=== PATIENT | male | born 1995 | race Caucasian/White ===

== ENCOUNTER 2019-05-29 11:09 | Emergency (ER) | payer BC ==
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
== END 2019-05-29 11:50 | disposition home or self-care (01) ==
LOC: ER 11:09
DX: S06.0X0A Concussion without loss of consciousness, initial encounter (principal); S80.812A Abrasion, left lower leg, initial encounter; V43.52XA Car driver injured in collision with other type car in traffic accident, initial encounter; Y93.89 Activity, other specified; Y92.410 Unspecified street and highway as the place of occurrence of the external cause; Y99.8 Other external cause status
CPT/HCPCS: Z7502